=== PATIENT | female | born 1975 | race African-American/Black ===

== ENCOUNTER 2019-08-26 08:08 | Emergency (ER) | payer OTHER ==
[2019-08-26 08:19] VITALS: TEMP 98.1; BMI 24.3
--- NOTE | 2019-08-26 08:47 | PDOC ---
History of Present Illness <Ada Pringle - Last Filed: 08/26/19 11:48> - History of Present Illness Initial Comments: 08/26/19 08:47 CHIEF COMPLAINT: suprapubic pain HISTORY OF PRESENT ILLNESS: 44 yo G?P3F (patient states she has "no earthly idea " how many times she has been ) with hx of asthma and "lunacy" presents to ED with suprapubic pain x 4 days. Patient reports the pain began 4 days ago when she and her boyfriend "went to a motel and he went deep diving" and she heard a "pop." She notes that she started her period 4 days ago as well and thought the pain would resolve after her period, but she the pain has worsened. She denies hx of STDs and states she is followed by PCP Dr. Miles and gets "yearly shots for that shit 'cause I don't want nothing." She reports minimal pain with urination as well as hematuria that she associates is with the end of her menstrual cycle. No recent travel or sick contacts. PAST MEDICAL HISTORY: asthma and "lunacy" FAMILY HISTORY: Denies SOCIAL HISTORY: Denies tobacco, alcohol, illicit drug use. SURGICAL HISTORY: Denies ALLERGIES: No known drug allergies REVIEW OF SYSTEMS General/Constitutional: Denies fever or chills. Denies weakness, weight change. HEENT: Denies change in vision. Denies ear pain or discharge. Denies sore throat. Cardiovascular: Denies chest pain or shortness of breath. Respiratory: Denies cough, wheezing, or hemoptysis. Gastrointestinal: Denies nausea, vomiting, diarrhea or constipation. Denies rectal bleeding. Genitourinary: Suprapubic pain x 4 days. Mild dysuria. Musculoskeletal: Denies joint or muscle swelling or pain. Denies neck or back pain. Skin and breasts: Denies rash or easy bruising. Neurologic: Denies headache, vertigo, loss of consciousness, or loss of sensation. Psychiatric: Denies depression or anxiety. PHYSICAL EXAM General Appearance: Well-appearing, appropriately dressed. No apparent distress , no intoxication. HEENT: EOMI, PERRLA, normal ENT inspection, normal voice, TMs normal, pharynx normal. No conjunctival pallor. No photophobia, scleral icterus. Neck: Supple. Trachea midline. No tenderness, rigidity, carotid bruit, stridor , lymphadenopathy, or thyromegaly. Respiratory/Chest: Lungs CTAB. No shortness of breath, chest tenderness, respiratory distress, accessory muscle use. No crackles, rales, rhonchi, stridor , wheezing, dullness Cardiovascular: RRR. S1, S2. No JVD, murmur, bradycardia, tachycardia. Vascular Pulses: Dorsalis-Pedis (R): 2+, Dorsalis-Pedis (L): 2+ Gastrointestinal/Abdominal: Normal bowel sounds. Abdomen soft, non-distended. No tenderness or rebound tenderness. No organomegaly, pulsatile mass, guarding , hernia, hepatomegaly, splenomegaly. Pelvic: External genitalia normal without lesions. Vaginal vault with foul smelling, greenish-yellow, bloody discharge . Cervix is long and closed. No cervical motion tenderness. Uterus is nontender and normal in size. Adnexa are nontender and without masses. Lymphatic: No adenopathy, tenderness. Musculoskeletal/Extremities: Normal inspection. FROM of all extremities, normal capillary refill. Pelvis Stable. No CVA tenderness. No tenderness to extremities, pedal edema, swelling, erythema or deformity. Integumentary: Appropriate color, dry, warm. No cyanosis, erythema, jaundice or rash Neurologic: certification officer II-XII intact. Fully oriented, alert. Appropriate mood/affect. Motor strength 5/5. No appreciable EOM palsy, facial droop or sensory deficit. <Esme De La Rosa - Last Filed: 08/26/19 12:25> - General Chief Complaint: Pain Stated Complaint: VAGINAL DISCOMFORT Time Seen by Provider: 08/26/19 08:43 Past History <Ada Pringle - Last Filed: 08/26/19 11:48> - Past Medical History Asthma: Yes COPD: No - Psycho Social/Smoking Cessation Hx Smoking History: Current every day smoker Have you smoked in the past 12 months: Yes Number of Cigarettes Smoked Daily: 10 Information on smoking cessation initiated: Yes Hx Alcohol Use: No Drug/Substance Use Hx: No Substance Use Type: None <Esme De La Rosa - Last Filed: 08/26/19 12:25> - Past Medical History Allergies/Adverse Reactions: Allergies Allergy/AdvReac Type Severity Reaction Status Date / Time No Known Allergies Allergy Verified 08/26/19 08:14 Home Medications: Ambulatory Orders Ibuprofen 600 mg PO TID #20 tablet 08/26/19 metroNIDAZOLE [Metronidazole] 500 mg PO BID #14 tablet 08/26/19 *Physical Exam - Vital Signs Last Vital Signs Temp Pulse Resp BP Pulse Ox 98.1 F 76 18 132/91 100 08/26/19 08:14 08/26/19 08:14 08/26/19 08:14 08/26/19 08:14 08/26/19 08:14 <Ada Pringle - Last Filed: 08/26/19 11:48> - Vital Signs Last Vital Signs Temp Pulse Resp BP Pulse Ox 98.1 F 76 18 132/91 100 08/26/19 08:14 08/26/19 08:14 08/26/19 08:14 08/26/19 08:14 08/26/19 08:14 <Esme De La Rosa - Last Filed: 08/26/19 12:25> ED Treatment Course - ADDITIONAL ORDERS Additional order review: Laboratory Results 08/26/19 09:30 Urine Color Yellow Urine Appearance Cloudy Urine pH 6.5 D Ur Specific [place] 1.019 Urine Protein Trace Urine Glucose (UA) Negative Urine Ketones Negative Urine Blood 3+ H Urine Nitrite Negative Urine Bilirubin Negative Urine Urobilinogen 0.2 Ur Leukocyte Esterase 1+ H <Ada Pringle - Last Filed: 08/26/19 11:48> Medical Decision Making - Medical Decision Making 08/26/19 11:05 The patient was seen and evaluated in conjunction with midlevel provider under my direct supervision, ancillary studies were reviewed. I agree with the plan as outlined with YEYO De La Rosa. HPI, workup/dispo as outlined. VS reviewed, wnl. labs and lytes, preg test neg, STI swabs sent. UA prelim neg for infection. TVUS with rt ovarian cyst, normal flows bilaterally anticipate discharge, pcp followup, return precautions 08/26/19 11:48 08/26/19 11:48 <Ada Pringle - Last Filed: 08/26/19 11:48> - Medical Decision Making 08/26/19 09:49 44 yo G?P3F (patient states she has "no earthly idea" how many times she has been ) with hx of asthma and "lunacy" presents to ED with suprapubic pain x 4 days. -urine -ct/gc cervical swab sent -TVUS 08/26/19 12:08 Given discharge and foul odor on pelvic exam, will treat empirically for ct/gc and BV. -azithromycin -ceftriaxone US reveals R ovarian cyst. nsaids for pain control, f/u with PCP/[facility]. Advised patient to take medication as prescribed and follow up with PCP and [facility] within the next week for continued monitoring of symptoms. Advised patient of signs and symptoms for return to ED. Patient verbalized understanding and agrees to plan. <Esme De La Rosa - Last Filed: 08/26/19 12:25> Discharge - Discharge Information Problems reviewed: Yes <Ada Pringle - Last Filed: 08/26/19 11:48> - Discharge Information Problems reviewed: Yes - Admission No <Esme De La Rosa - Last Filed: 08/26/19 12:25> - Discharge Information Clinical Impression/Diagnosis: Bacterial vaginosis, Concern about STD in female without diagnosis Ovarian cyst Qualifiers: Laterality: right Qualified Code(s): N83.201 - Unspecified ovarian cyst, right side Condition: Stable Disposition: HOME - Additional Discharge Information Prescriptions: Ibuprofen 600 mg PO TID #20 tablet metroNIDAZOLE [Metronidazole] 500 mg PO BID #14 tablet - Follow up/Referral Referrals: Jacques Miles MD [Primary Care Provider] - - Patient Discharge Instructions Patient Printed Discharge Instructions: DI for Bacterial Vaginosis, Facts About Sexually Transmitted Infections, DI for Ovarian Cyst - Post Discharge Activity
[2019-08-26 10:20] LABS: PH,URINE 6.5 (5.0-8.0); URINE APPEARANCE CLOUDY; URINE BILIRUBIN NEGATIVE (NEGATIVE); URINE COLOR YELLOW; URINE GLUCOSE (UA) NEGATIVE (NEGATIVE); URINE KETONE NEGATIVE (NEGATIVE); URINE LEUK ESTERASE 1+ (NEGATIVE); URINE NITRITE NEGATIVE (NEGATIVE); URINE PROTEIN TRACE (NEGATIVE); URINE UROBILINOGEN 0.2 mg/dL (0.2-1.0)
[2019-08-26] MEDS ORDERED: AZITHROMYCIN 500 MG TABLET PO ONE (10:49)
[2019-08-26] MEDS ORDERED: ACETAMINOPHEN 500 MG TABLET (FP) PO ONE (10:49)
[2019-08-26] MEDS ORDERED: ACETAMINOPHEN 325 MG TABLET (FP) ONE (12:16)
[2019-08-26] MEDS ORDERED: AZITHROMYCIN 500 MG TABLET ONE (12:16)
[2019-08-26] MEDS ORDERED: cefTRIAXone SODIUM 1 GM VIAL ONE (12:17)
[2019-08-26 12:39] VITALS: BP 135/88; PULSE 72
== END 2019-08-26 12:38 | disposition home or self-care (01) ==
LOC: JER 08:08
DX: N76.0 Acute vaginitis (principal); B96.89 Other specified bacterial agents as the cause of diseases classified elsewhere; N83.201 Unspecified ovarian cyst, right side; J45.909 Unspecified asthma, uncomplicated; F17.210 Nicotine dependence, cigarettes, uncomplicated
CPT/HCPCS: 36415; 76817-TC; 81003; 84703; 87086; 87491; 87591; 87661; 96372; 99282-25

== ENCOUNTER 2022-08-05 10:41 | Emergency (ER) | payer OTHER ==
[2022-08-05 10:55] VITALS: TEMP 98.3; BMI 26.6
[2022-08-05 12:55] LABS: EPI CELLS >36 /uL (0-25.1); HCG,QUALITATIVE URINE Negative; HYALINE CASTS 3 /uL (0-3.1); PH,URINE 6.5 (5.0-8.0); URINE APPEARANCE TURBID; URINE BACTERIA 39 /uL (0-1359); URINE BILIRUBIN 1+ (NEGATIVE); URINE COLOR RED; URINE GLUCOSE (UA) NEGATIVE (NEGATIVE); URINE KETONE NEGATIVE (NEGATIVE); URINE LEUK ESTERASE 1+ (NEGATIVE); URINE NITRITE NEGATIVE (NEGATIVE); URINE PROTEIN 1+ (NEGATIVE); URINE RBC 26283 /uL (0-23.9); URINE UROBILINOGEN 0.2 mg/dL (0.2-1.0); URINE WBC 166 /uL (0-25.8)
[2022-08-05 14:13] VITALS: BP 120/84; PULSE 72; RESP 20
== END 2022-08-05 14:13 | disposition home or self-care (01) ==
LOC: JER 10:41
DX: N39.0 Urinary tract infection, site not specified (principal); N93.9 Abnormal uterine and vaginal bleeding, unspecified
CPT/HCPCS: 81003; 84703; 87077; 87086; 99283-25